=== PATIENT | female | born 1950 | race Caucasian/White ===

== ENCOUNTER 2017-09-29 10:11 | Inpatient (IN) | payer OTHER ==
--- NOTE | 2017-09-29 10:32 | PDOC ---
History of Present Illness <Matt Penaloza - Last Filed: 09/29/17 14:51> - General History Source: Patient Exam Limitations: No Limitations - History of Present Illness Initial Comments: 09/29/17 12:03 The patient is a 67 year old female, with a significant past medical history of Eczema who presents to the emergency department with L leg cellulitis. Patient has eczema of her LLE which she has been itching more frequently. Yesterday, patient has developed new erythema to the area. Patient states her eczema now involves her L foot and presents to the ED for further evaluation. Patient denies chest pain, headache or dizziness. Patient denies fever, chills, abdominal pain, nausea, vomit, diarrhea or constipation. Patient denies dysuria , frequency, urgency or hematuria. Patient denies sick contacts or recent travel. Allergies: NKA Past surgical history: None Social history: None PCP: Dr. Andres <Sanjuana Avitia - Last Filed: 09/29/17 14:55> - General Chief Complaint: Rash Stated Complaint: RASH Time Seen by Provider: 09/29/17 10:23 Past History - Past Medical History COPD: No Thyroid Disease: No - Immunization History Immunization Up to Date: Yes - Suicide/Smoking/Psychosocial Hx Smoking History: Never smoked Have you smoked in the past 12 months: No Hx Alcohol Use: Yes (OCCAS) Drug/Substance Use Hx: No Substance Use Type: Alcohol Hx Substance Use Treatment: No <TremaineMatt - Last Filed: 09/29/17 14:51> <Sanjuana Avitia - Last Filed: 09/29/17 14:55> - Past Medical History Allergies/Adverse Reactions: Allergies Allergy/AdvReac Type Severity Reaction Status Date / Time No Known Drug Allergies Allergy Verified 09/29/17 10:20 Home Medications: Ambulatory Orders NK [No Known Home Medication] 09/29/17 Review of Systems - Review of Systems Able to Perform ROS?: Yes Comments:: 09/29/17 12:03 GENERAL/CONSTITUTIONAL: No fever or chills. No weakness. HEAD, EYES, EARS, NOSE AND THROAT: No change in vision. No ear pain or discharge. No sore throat. CARDIOVASCULAR: No chest pain or shortness of breath. RESPIRATORY: No cough, wheezing, or hemoptysis. GASTROINTESTINAL: No nausea, vomiting, diarrhea or constipation. GENITOURINARY: No dysuria, frequency, or change in urination. MUSCULOSKELETAL: No joint or muscle swelling or pain. No neck or back pain. SKIN: +Eczema to LLE. No rash NEUROLOGIC: No headache, vertigo, loss of consciousness, or change in strength/ sensation. ENDOCRINE: No increased thirst. No abnormal weight change. HEMATOLOGIC/LYMPHATIC: No anemia, easy bleeding, or history of blood clots. ALLERGIC/IMMUNOLOGIC: No hives or skin allergy. <Sanjuana Avitia - Last Filed: 09/29/17 14:55> *Physical Exam - Vital Signs Last Vital Signs Temp Pulse Resp BP Pulse Ox 97.9 F 107 H 20 156/89 99 09/29/17 10:14 09/29/17 10:14 09/29/17 10:14 09/29/17 10:14 09/29/17 10:14 <Matt Penaloza - Last Filed: 09/29/17 14:51> - Vital Signs Last Vital Signs Temp Pulse Resp BP Pulse Ox 97.9 F 107 H 20 156/89 99 09/29/17 10:14 09/29/17 10:14 09/29/17 10:14 09/29/17 10:14 09/29/17 10:14 - Physical Exam Comments: 09/29/17 12:03 GENERAL: Awake, alert, and fully oriented, in no acute distress HEAD: No signs of trauma EYES: PERRLA, EOMI, sclera anicteric, conjunctiva clear ENT: Auricles normal inspection, hearing grossly normal, nares patent, oropharynx clear without exudates. Moist mucosa NECK: Normal ROM, supple, no lymphadenopathy, JVD, or masses LUNGS: Breath sounds equal, clear to auscultation bilaterally. No wheezes, and no crackles HEART: Regular rate and rhythm, normal S1 and S2, no murmurs, rubs or gallops ABDOMEN: Soft, nontender, normoactive bowel sounds. No guarding, no rebound. No masses EXTREMITIES: +Eczema to both LLE.+ Redness, tenderness and swelling from L foot to L knee. Normal range of motion. No clubbing or cyanosis. No cords. NEUROLOGICAL: Cranial nerves II through XII grossly intact. Normal speech, normal gait SKIN: Warm, Dry, normal turgor, no rashes or lesions noted. <Sanjuana Avitia - Last Filed: 09/29/17 14:55> ED Treatment Course - LABORATORY CBC & Chemistry Diagram: 09/29/17 11:03 09/29/17 13:43 <Matt Penaloza - Last Filed: 09/29/17 14:51> - LABORATORY CBC & Chemistry Diagram: 09/29/17 11:03 09/29/17 13:43 - ADDITIONAL ORDERS Additional order review: 09/29/17 11:03 RBC 4.07 MCV 94.4 MCHC 33.2 RDW 13.0 MPV 9.0 Neutrophils % 82.2 Lymphocytes % 9.7 Monocytes % 7.3 Eosinophils % 0.4 Basophils % 0.4 - Medications Given in the ED: ED Medications Discontinued Medications Generic Name Dose Route Start Last Admin Trade Name Freq PRN Reason Stop Dose Admin Clindamycin Phosphate 900 mg in 50 mls @ 100 mls/hr 09/29/17 10:51 09/29/17 11:15 Cleocin 900 Mg Premix Ivpb - IVPB 09/29/17 11:20 100 mls/hr ONCE ONE Administration <Sanjuana Avitia - Last Filed: 09/29/17 14:55> *DC/Admit/Observation/Transfer - Discharge Dispostion Admit: Yes - Attestations Physician Attestion: 09/29/17 10:32 I, Dr. Matt Penaloza, attest that this document has been prepared under my direction and personally reviewed by me in its entirety. I further attest, that it accurately reflects all work, treatment, procedures and medical decision -making performed by me. <Matt Penaloza - Last Filed: 09/29/17 14:51> - Attestations Scribe Attestion: 09/29/17 12:03 Documentation prepared by Sanjuana Avitia, acting as medical dermatologist for Matt Penaloza MD <Sanjuana Avitia - Last Filed: 09/29/17 14:55> Diagnosis at time of Disposition: Cellulitis Qualifiers: Site of cellulitis: extremity Site of cellulitis of extremity: lower extremity Laterality: left Qualified Code(s): L03.116 - Cellulitis of left lower limb - Referrals Referrals: Mike Andres MD [Primary Care Provider] - - Patient Instructions - Post Discharge Activity
[2017-09-29] MEDS ORDERED: CLINDAMYCIN 900 MG PREMIX IVPB 900 MG/50 ML BAG IVPB ONE ×2 (10:51→11:12)
[2017-09-29 11:36] LABS: BASOPHIL 0.4 % (0-2.0); EOSINOPHIL 0.4 % (0-4.5); MCH 31.4 pg (25.7-33.7); MCHC 33.2 g/dl (32.0-36.0); MEAN CELL VOLUME 94.4 fl (80-96); NEUTROPHILS 82.2 % (42.8-82.8); PLATELET COUNT 297 K/MM3 (134-434); WHITE BLOOD COUNT 17.9 K/mm3 (4.0-10.0)
[2017-09-29 11:42] LABS: INR 1.12 (0.82-1.09); PROTHROMBIN TIME (PATIENT) 12.7 SEC (9.98-11.88)
[2017-09-29] MEDS ORDERED: ONDANSETRON 4 MG/2 ML VIAL IVPUSH ONE (13:37)
[2017-09-29] MEDS ORDERED: ONDANSETRON 4 MG/2 ML VIAL ONE (13:38)
[2017-09-29 14:06] LABS: ALBUMIN 3.5 g/dl (3.4-5.0); ANION GAP 9 (8-16); CALCIUM 9.7 mg/dL (8.5-10.1); CO2 30 mmol/L (21-32); CREATININE 0.8 mg/dL (0.55-1.02); GLUCOSE,RANDOM 113 mg/dL (74-106); SGOT/AST 41 U/L (15-37); SGPT/ALT 111 U/L (12-78); TOT PROT 8.4 g/dl (6.4-8.2)
[2017-09-29 14:12] LABS: ALK PHOS 218 U/L (45-117); BILIRUBIN,TOTAL 0.8 mg/dL (0.2-1.0); C-REACTIVE PROTEIN 33.2 MG/DL (0.00-0.3)
[2017-09-29 15:16] VITALS: BMI 41.5
[2017-09-29 15:30] LABS: ERYTHROCYTE SEDIMENTATION RATE 111 mm/hr (0-30)
[2017-09-29] MEDS ORDERED: ACETAMINOPHEN 325 MG TABLET (FP) PO PRN (16:48)
[2017-09-29] MEDS ORDERED: ONDANSETRON 4 MG/2 ML VIAL IVPUSH PRN (16:56)
--- NOTE | 2017-09-29 17:43 | HP ---
CHIEF COMPLAINT: Left lower extremity , pain/ swelling PCP: DR. Lagunas HISTORY OF PRESENT ILLNESS: The patient is a 67 year old female, with a significant past medical history of Eczema who presents to the emergency department with Left leg pain, redness, swelling and itching since yesterday.Pt also reports subjective fever,GONZALEZ,nausea , generalized weakness and flu likely symptoms over a week. Denies cp, sob, palpitations, dizziness, abdominal pain,vomiting, diarrhea,constipation or urinary symptoms. ER course was notable for: (1) wbc 17.9 (2)HR 107 (3)NA-133 Recent Travel: No PAST MEDICAL HISTORY: Eczema and kidney stone PAST SURGICAL HISTORY: Lithotripsy 2 yrs ago Social History: Smoking:No Alcohol:No Drugs: No Family History: Father - colon CA, CVA Mother RA I brother - DM Sister of liver cirrhosis at age 45yrs old Allergies No Known Drug Allergies Allergy (Verified 09/29/17 10:20) HOME MEDICATIONS: Home Medications Medication Instructions Recorded NK [No Known Home Medication] 09/29/17 REVIEW OF SYSTEMS CONSTITUTIONAL: Reports fever, chills and recent respiratory symptoms ( cold symptoms) diaphoresis, generalized weakness, malaise, loss of appetite, weight change HEENT: Absent: rhinorrhea, nasal congestion, throat pain, throat swelling, difficulty swallowing, mouth swelling, ear pain, eye pain, visual changes CARDIOVASCULAR: Absent: chest pain, syncope, palpitations, irregular heart rate, lightheadedness , peripheral edema RESPIRATORY: Absent: cough, shortness of breath, dyspnea with exertion, orthopnea, wheezing, stridor, hemoptysis GASTROINTESTINAL: Absent: abdominal pain, abdominal distension, nausea, vomiting, diarrhea, constipation, melena, hematochezia GENITOURINARY: Absent: dysuria, frequency, urgency, hesitancy, hematuria, flank pain, genital pain MUSCULOSKELETAL: LLE throbbing pain,pain,swelling and redness Absent: myalgia, arthralgia, joint swelling, back pain, neck pain SKIN: Absent: rash, itching, pallor HEMATOLOGIC/IMMUNOLOGIC: Absent: easy bleeding, easy bruising, lymphadenopathy, frequent infections ENDOCRINE: Absent: unexplained weight gain, unexplained weight loss, heat intolerance, cold intolerance NEUROLOGIC: Absent: headache, focal weakness or paresthesias, dizziness, unsteady gait, seizure, mental status changes, bladder or bowel incontinence PSYCHIATRIC: Absent: anxiety, depression, suicidal or homicidal ideation, hallucinations. PHYSICAL EXAMINATION Vital Signs - 24 hr 09/29/17 09/29/17 09/29/17 10:14 14:00 16:02 Temperature 97.9 F 98 F Pulse Rate 107 H 91 H Pulse Rate [ 90 Right Radial] Respiratory 20 18 18 Rate Blood Pressure 156/89 130/65 Blood Pressure 130/82 [Left Arm] O2 Sat by Pulse 99 99 Oximetry (%) GENERAL: Awake, alert, and fully oriented, in no acute distress. HEAD: Normal with no signs of trauma. EYES: Pupils equal, round and reactive to light, extraocular movements intact, sclera anicteric, conjunctiva clear. No lid lag. EARS, NOSE, THROAT: Ears normal, nares patent, oropharynx clear without exudates. Moist mucous membranes. NECK: Normal range of motion, supple without lymphadenopathy, JVD, or masses. LUNGS: Breath sounds equal, clear to auscultation bilaterally. No wheezes, and no crackles. No accessory muscle use. HEART: Regular rate and rhythm, normal S1 and S2 without murmur, rub or gallop. ABDOMEN: Soft, nontender, not distended, normoactive bowel sounds, no guarding, no rebound, no masses. No hepatomegaly or splenomegaly. MUSCULOSKELETAL: Normal range of motion at all joints. No bony deformities or tenderness. No CVA tenderness. UPPER EXTREMITIES: 2+ pulses, warm, well-perfused. No cyanosis. No clubbing. No peripheral edema. LOWER EXTREMITIES: 2+ pulses, warm, well-perfused. LLE with redness, swelling, + tenderness and multiple skin lesions (scratching) No calf tenderness. No peripheral edema. NEUROLOGICAL: Cranial nerves II-XII intact. Normal speech. Normal gait. PSYCHIATRIC: Cooperative. Good eye contact. Appropriate mood and affect. SKIN: Warm, dry, normal turgor, LLE lesions noted, normal capillary refill. Laboratory Results - last 24 hr 09/29/17 09/29/17 09/29/17 11:03 11:03 11:03 WBC 17.9 H RBC 4.07 Hgb 12.8 Hct 38.4 MCV 94.4 MCH 31.4 MCHC 33.2 RDW 13.0 Plt Count 297 MPV 9.0 Neutrophils % 82.2 Lymphocytes % 9.7 Monocytes % 7.3 Eosinophils % 0.4 Basophils % 0.4 ESR 111 H PT with INR 12.70 H INR 1.12 Sodium Cancelled Potassium Cancelled Chloride Cancelled Carbon Dioxide Cancelled Anion Gap Cancelled BUN Cancelled Creatinine Cancelled Creat Clearance w eGFR Cancelled Random Glucose Cancelled Calcium Cancelled Total Bilirubin Cancelled AST Cancelled ALT Cancelled Alkaline Phosphatase Cancelled C-Reactive Protein Cancelled Total Protein Cancelled Albumin Cancelled 09/29/17 13:43 WBC RBC Hgb Hct MCV MCH MCHC RDW Plt Count MPV Neutrophils % Lymphocytes % Monocytes % Eosinophils % Basophils % ESR PT with INR INR Sodium 133 L Potassium 4.3 Chloride 94 L Carbon Dioxide 30 Anion Gap 9 BUN 11 Creatinine 0.8 Creat Clearance w eGFR > 60 Random Glucose 113 H Calcium 9.7 Total Bilirubin 0.8 AST 41 H ALT 111 H Alkaline Phosphatase 218 H C-Reactive Protein 33.2 H Total Protein 8.4 H Albumin 3.5 Blood culture done: Report pending US lower EXT- DVT ruled out ASSESSMENT/PLAN: The patient is a 67 year old female, with a significant past medical history of Eczema, Admitted with LLE cellulitis. * sepsis secondary to LLE cellulitis - DVT ruled out - wbc 17.9, ST - afebrile - s/p Cleocin in ER - will start on Zosyn - ID consulted - Bllod culture done, report pending - lactic acid level pending - abnormal ESR and CRP - pain management - will get CxR and UA *Transaminitis - likely in the setting of infection - denies hx of alcohol use - asymptomatic - will repeat LFT's in am - if it remains elevated, further w/u needed * Dehydration - NA 133 - Started on IVF - will f/u on labs in am * F/E/N- Regular diet -IV hydration * VTE : Heparin sq Visit type - Emergency Visit Emergency Visit: Yes ED Registration Date: 09/29/17 Care time: The patient presented to the Emergency Department on the above date and was hospitalized for further evaluation of their emergent condition. - New Patient This patient is new to me today: Yes Date on this admission: 09/29/17 - Critical Care Critical Care patient: No
[2017-09-29] MEDS: traMADol HCL 50 MG TABLET PO PRN (17:50)
[2017-09-29] MEDS: SODIUM CHLORIDE 1,000 ML IV SCH (17:50)
[2017-09-29] MEDS: PIPERACILLIN/TAZOB 3.375 GM 50 ML IVPB SCH (19:04)
[2017-09-29] MEDS: HEPARIN NA (PORCINE) 5,000 UNITS/ML 1ML VIAL SQ SCH (21:41)
[2017-09-29 23:25] LABS: URINE APPEARANCE SLCLOUDY; URINE BILIRUBIN NEGATIVE (NEGATIVE); URINE BLOOD NEGATIVE (NEGATIVE); URINE COLOR YELLOW; URINE GLUCOSE (UA) NEGATIVE (NEGATIVE); URINE KETONE TRACE (NEGATIVE); URINE NITRITE NEGATIVE (NEGATIVE); URINE PROTEIN NEGATIVE (NEGATIVE)
[2017-09-29 23:26] LABS: URINE LEUK ESTERASE 3+ (NEGATIVE)
[2017-09-29 23:27] LABS: URINE MUCUS RARE; URINE RBC 7 /hpf (0-3); URINE WBC 89 /hpf (3-5)
[2017-09-30] MEDS: PIPERACILLIN/TAZOB 3.375 GM 50 ML IVPB SCH ×2 (01:23→09:42)
[2017-09-30] MEDS: SODIUM CHLORIDE 1,000 ML IV SCH ×2 (04:41→15:06)
[2017-09-30] MEDS: traMADol HCL 50 MG TABLET PO PRN ×3 (05:31→19:15)
[2017-09-30] MEDS: HEPARIN NA (PORCINE) 5,000 UNITS/ML 1ML VIAL SQ SCH ×3 (05:32→22:44)
[2017-09-30 07:51] LABS: ALBUMIN 2.9 g/dl (3.4-5.0); ANION GAP 10 (8-16); CALCIUM 9.1 mg/dL (8.5-10.1); CO2 28 mmol/L (21-32); GLUCOSE,RANDOM 81 mg/dL (74-106)
[2017-09-30 07:55] LABS: ALK PHOS 190 U/L (45-117); BILIRUBIN,TOTAL 0.8 mg/dL (0.2-1.0); CREATININE 0.7 mg/dL (0.55-1.02); SGOT/AST 30 U/L (15-37); SGPT/ALT 81 U/L (12-78); TOT PROT 7.4 g/dl (6.4-8.2)
[2017-09-30 08:52] LABS: BASOPHIL 0.6 % (0-2.0); EOSINOPHIL 0.8 % (0-4.5); MCH 32.3 pg (25.7-33.7); MCHC 33.2 g/dl (32.0-36.0); MEAN PLT VOLUME 8.8 fl (7.5-11.1); NEUTROPHILS 74.4 % (42.8-82.8); PLATELET COUNT 287 K/MM3 (134-434); RDW 13.4 % (11.6-15.6); WHITE BLOOD COUNT 13.9 K/mm3 (4.0-10.0)
--- NOTE | 2017-09-30 13:11 | HP ---
CHIEF COMPLAINT: PCP: HISTORY OF PRESENT ILLNESS: ER course was notable for: (1) (2) (3) Recent Travel: PAST MEDICAL HISTORY: PAST SURGICAL HISTORY: Social History: Smoking: Alcohol: Drugs: Family History: Allergies No Known Drug Allergies Allergy (Verified 09/29/17 10:20) HOME MEDICATIONS: Home Medications Medication Instructions Recorded NK [No Known Home Medication] 09/29/17 REVIEW OF SYSTEMS CONSTITUTIONAL: Absent: fever, chills, diaphoresis, generalized weakness, malaise, loss of appetite, weight change HEENT: Absent: rhinorrhea, nasal congestion, throat pain, throat swelling, difficulty swallowing, mouth swelling, ear pain, eye pain, visual changes CARDIOVASCULAR: Absent: chest pain, syncope, palpitations, irregular heart rate, lightheadedness , peripheral edema RESPIRATORY: Absent: cough, shortness of breath, dyspnea with exertion, orthopnea, wheezing, stridor, hemoptysis GASTROINTESTINAL: Absent: abdominal pain, abdominal distension, nausea, vomiting, diarrhea, constipation, melena, hematochezia GENITOURINARY: Absent: dysuria, frequency, urgency, hesitancy, hematuria, flank pain, genital pain MUSCULOSKELETAL: Absent: myalgia, arthralgia, joint swelling, back pain, neck pain SKIN: Absent: rash, itching, pallor HEMATOLOGIC/IMMUNOLOGIC: Absent: easy bleeding, easy bruising, lymphadenopathy, frequent infections ENDOCRINE: Absent: unexplained weight gain, unexplained weight loss, heat intolerance, cold intolerance NEUROLOGIC: Absent: headache, focal weakness or paresthesias, dizziness, unsteady gait, seizure, mental status changes, bladder or bowel incontinence PSYCHIATRIC: Absent: anxiety, depression, suicidal or homicidal ideation, hallucinations. PHYSICAL EXAMINATION Vital Signs - 24 hr 09/29/17 09/29/17 09/29/17 14:00 16:02 21:00 Temperature 98 F Pulse Rate 91 H Pulse Rate [ 90 Right Radial] Respiratory 18 18 20 Rate Blood Pressure 130/65 Blood Pressure 130/82 [Left Arm] O2 Sat by Pulse 99 99 Oximetry (%) 09/29/17 09/30/17 09/30/17 22:00 05:42 06:09 Temperature 98.9 F 98.3 F Pulse Rate 90 79 Pulse Rate [ Right Radial] Respiratory 20 20 19 Rate Blood Pressure 130/70 143/67 Blood Pressure [Left Arm] O2 Sat by Pulse 99 Oximetry (%) 12/11/17 10:00 Temperature 99 F Pulse Rate 82 Pulse Rate [ Right Radial] Respiratory 18 Rate Blood Pressure 117/69 Blood Pressure [Left Arm] O2 Sat by Pulse Oximetry (%) GENERAL: Awake, alert, and fully oriented, in no acute distress. HEAD: Normal with no signs of trauma. EYES: Pupils equal, round and reactive to light, extraocular movements intact, sclera anicteric, conjunctiva clear. No lid lag. EARS, NOSE, THROAT: Ears normal, nares patent, oropharynx clear without exudates. Moist mucous membranes. NECK: Normal range of motion, supple without lymphadenopathy, JVD, or masses. LUNGS: Breath sounds equal, clear to auscultation bilaterally. No wheezes, and no crackles. No accessory muscle use. HEART: Regular rate and rhythm, normal S1 and S2 without murmur, rub or gallop. ABDOMEN: Soft, nontender, not distended, normoactive bowel sounds, no guarding, no rebound, no masses. No hepatomegaly or splenomegaly. MUSCULOSKELETAL: Normal range of motion at all joints. No bony deformities or tenderness. No CVA tenderness. UPPER EXTREMITIES: 2+ pulses, warm, well-perfused. No cyanosis. No clubbing. No peripheral edema. LOWER EXTREMITIES: 2+ pulses, warm, well-perfused. No calf tenderness. No peripheral edema. NEUROLOGICAL: Cranial nerves II-XII intact. Normal speech. Normal gait. PSYCHIATRIC: Cooperative. Good eye contact. Appropriate mood and affect. SKIN: Warm, dry, normal turgor, no rashes or lesions noted, normal capillary refill. Laboratory Results - last 24 hr 09/29/17 09/29/17 09/29/17 11:03 13:43 16:50 WBC RBC Hgb Hct MCV MCH MCHC RDW Plt Count MPV Neutrophils % Lymphocytes % Monocytes % Eosinophils % Basophils % ESR 111 H Sodium 133 L Potassium 4.3 Chloride 94 L Carbon Dioxide 30 Anion Gap 9 BUN 11 Creatinine 0.8 Creat Clearance w eGFR > 60 Random Glucose 113 H Lactic Acid 1.1 Calcium 9.7 Total Bilirubin 0.8 AST 41 H ALT 111 H Alkaline Phosphatase 218 H C-Reactive Protein 33.2 H Total Protein 8.4 H Albumin 3.5 Urine Color Urine Appearance Urine pH Ur Specific [place] Urine Protein Urine Glucose (UA) Urine Ketones Urine Blood Urine Nitrite Urine Bilirubin Urine Urobilinogen Urine WBC (Auto) Urine RBC (Auto) Ur Epithelial Cells Urine Mucus 09/29/17 09/29/17 09/30/17 21:30 23:00 05:15 WBC RBC Hgb Hct MCV MCH MCHC RDW Plt Count MPV Neutrophils % Lymphocytes % Monocytes % Eosinophils % Basophils % ESR Sodium 134 L Potassium 3.8 Chloride 96 L Carbon Dioxide 28 Anion Gap 10 BUN 13 Creatinine 0.7 Creat Clearance w eGFR > 60 Random Glucose 81 D Lactic Acid 0.7 Calcium 9.1 Total Bilirubin 0.8 AST 30 D ALT 81 H D Alkaline Phosphatase 190 H C-Reactive Protein Total Protein 7.4 Albumin 2.9 L Urine Color Yellow Urine Appearance Slcloudy Urine pH 5.0 Ur Specific [place] 1.016 Urine Protein Negative Urine Glucose (UA) Negative Urine Ketones Trace H Urine Blood Negative Urine Nitrite Negative Urine Bilirubin Negative Urine Urobilinogen 2.0 H Urine WBC (Auto) 89 Urine RBC (Auto) 7 Ur Epithelial Cells Few Urine Mucus Rare 09/30/17 05:15 WBC 13.9 H RBC 3.68 Hgb 11.9 Hct 35.7 MCV 97.0 H MCH 32.3 MCHC 33.2 RDW 13.4 Plt Count 287 MPV 8.8 Neutrophils % 74.4 Lymphocytes % 14.6 D Monocytes % 9.6 Eosinophils % 0.8 D Basophils % 0.6 ESR Sodium Potassium Chloride Carbon Dioxide Anion Gap BUN Creatinine Creat Clearance w eGFR Random Glucose Lactic Acid Calcium Total Bilirubin AST ALT Alkaline Phosphatase C-Reactive Protein Total Protein Albumin Urine Color Urine Appearance Urine pH Ur Specific [place] Urine Protein Urine Glucose (UA) Urine Ketones Urine Blood Urine Nitrite Urine Bilirubin Urine Urobilinogen Urine WBC (Auto) Urine RBC (Auto) Ur Epithelial Cells Urine Mucus ASSESSMENT/PLAN:
--- NOTE | 2017-09-30 13:11 | PN ---
Physical Exam: SUBJECTIVE: Patient seen and examined at the bedside. Mild LLE pain relieved with pain medications. OBJECTIVE: Vital Signs Period Temp Pulse Resp BP Sys/Hazel Pulse Ox Last 24 Hr 98 F-99 F 79-91 18-20 117-143/65-82 99-99 GENERAL: The patient is awake, alert, and fully oriented, in no acute distress. HEAD: Normal with no signs of trauma. EYES: PERRL, extraocular movements intact, sclera anicteric, conjunctiva clear. No ptosis. ENT: Ears normal, nares patent, oropharynx clear without exudates, moist mucous membranes. NECK: Trachea midline, full range of motion, supple. LUNGS: Mild expiratory wheezing on bilateral upper lobes, denies shortness of breath HEART: Regular rate and rhythm, S1, S2 without murmur, rub or gallop. ABDOMEN: Soft, nontender, nondistended, normoactive bowel sounds, no guarding, no rebound, no hepatosplenomegaly, no masses. EXTREMITIES: LLE + cellulitis, SKIN: LLE cellulitis, ext warm to touch, +pain with ambulation Laboratory Results - last 24 hr 09/29/17 09/29/17 09/29/17 11:03 13:43 16:50 WBC RBC Hgb Hct MCV MCH MCHC RDW Plt Count MPV Neutrophils % Lymphocytes % Monocytes % Eosinophils % Basophils % ESR 111 H Sodium 133 L Potassium 4.3 Chloride 94 L Carbon Dioxide 30 Anion Gap 9 BUN 11 Creatinine 0.8 Creat Clearance w eGFR > 60 Random Glucose 113 H Lactic Acid 1.1 Calcium 9.7 Total Bilirubin 0.8 AST 41 H ALT 111 H Alkaline Phosphatase 218 H C-Reactive Protein 33.2 H Total Protein 8.4 H Albumin 3.5 Urine Color Urine Appearance Urine pH Ur Specific [place] Urine Protein Urine Glucose (UA) Urine Ketones Urine Blood Urine Nitrite Urine Bilirubin Urine Urobilinogen Urine WBC (Auto) Urine RBC (Auto) Ur Epithelial Cells Urine Mucus 09/29/17 09/29/17 09/30/17 21:30 23:00 05:15 WBC RBC Hgb Hct MCV MCH MCHC RDW Plt Count MPV Neutrophils % Lymphocytes % Monocytes % Eosinophils % Basophils % ESR Sodium 134 L Potassium 3.8 Chloride 96 L Carbon Dioxide 28 Anion Gap 10 BUN 13 Creatinine 0.7 Creat Clearance w eGFR > 60 Random Glucose 81 D Lactic Acid 0.7 Calcium 9.1 Total Bilirubin 0.8 AST 30 D ALT 81 H D Alkaline Phosphatase 190 H C-Reactive Protein Total Protein 7.4 Albumin 2.9 L Urine Color Yellow Urine Appearance Slcloudy Urine pH 5.0 Ur Specific [place] 1.016 Urine Protein Negative Urine Glucose (UA) Negative Urine Ketones Trace H Urine Blood Negative Urine Nitrite Negative Urine Bilirubin Negative Urine Urobilinogen 2.0 H Urine WBC (Auto) 89 Urine RBC (Auto) 7 Ur Epithelial Cells Few Urine Mucus Rare 09/30/17 05:15 WBC 13.9 H RBC 3.68 Hgb 11.9 Hct 35.7 MCV 97.0 H MCH 32.3 MCHC 33.2 RDW 13.4 Plt Count 287 MPV 8.8 Neutrophils % 74.4 Lymphocytes % 14.6 D Monocytes % 9.6 Eosinophils % 0.8 D Basophils % 0.6 ESR Sodium Potassium Chloride Carbon Dioxide Anion Gap BUN Creatinine Creat Clearance w eGFR Random Glucose Lactic Acid Calcium Total Bilirubin AST ALT Alkaline Phosphatase C-Reactive Protein Total Protein Albumin Urine Color Urine Appearance Urine pH Ur Specific [place] Urine Protein Urine Glucose (UA) Urine Ketones Urine Blood Urine Nitrite Urine Bilirubin Urine Urobilinogen Urine WBC (Auto) Urine RBC (Auto) Ur Epithelial Cells Urine Mucus Active Medications Generic Name Dose Route Start Last Admin Trade Name Freq PRN Reason Stop Dose Admin Acetaminophen 650 mg 09/29/17 16:48 09/29/17 23:27 Tylenol - PO 650 mg Q4H PRN Administration FEVER OR PAIN Heparin Sodium (Porcine) 5,000 unit 09/29/17 22:00 09/30/17 05:32 Heparin - SQ 5,000 unit TID SWATHI Administration Piperacillin/Tazobactam/Dextrose 50 mls @ 100 mls/hr 09/29/17 18:00 09/30/17 09:42 Zosyn 3.375gm Ivpb (Premix) IVPB 100 mls/hr Q8H-IV SWATHI Administration Protocol Sodium Chloride 1,000 mls @ 100 mls/hr 09/29/17 17:00 09/30/17 04:41 Normal Saline - IV 100 mls/hr ASDIR SWATHI Administration Ondansetron HCl 4 mg 09/29/17 16:56 Zofran Injection IVPUSH Q4H PRN NAUSEA AND/OR VOMITING Tramadol HCl 50 mg 09/29/17 16:55 09/30/17 11:21 Ultram - PO 50 mg Q6H PRN Administration PAIN ASSESSMENT/PLAN: Patient is a 67 year old female, with a significant past medical history of eczema and former smoker. She presented to the ED on 09/29/2017 with lower extremity cellulitis. Patient has eczema of her LLE which she has been scratching with her fingernails more frequently. Patient states her eczema now involves her L foot and presents to the ED for further evaluation. On exam, patient denies chest pain, headache or dizziness. Patient denies fever , chills, abdominal pain, nausea, vomit, diarrhea or constipation. ID: Sepsis secondary to Left Lower ext Cellulitis, improving Negative for DVT WBC 17.9 > 13.9 Given Clindamycin in ER, now on Zosyn Wound not draining, unable to send for culture Multiple area of healed scabs on wound Lactic levels within normal limits Remains afebrile Monitor wound, pain and labs GI: Transaminitis, unclear etiology Denies alcohol use LFTs trending down Dehydration Sodium levels improving 133>134 On IVF, gentle hydration F.E.N. Fluids: NS @ 50cc/hr Electrolytes: monitor Nutrition: regular Prophylaxis: DVT: Heparin sq TID GI: deferred Disposition: Requires inpatient hospitalization. full code Visit type - Emergency Visit Emergency Visit: Yes ED Registration Date: 09/29/17 Care time: The patient presented to the Emergency Department on the above date and was hospitalized for further evaluation of their emergent condition. - New Patient This patient is new to me today: Yes Date on this admission: 09/30/17 - Critical Care Critical Care patient: No - Discharge Referral Referred to [facility] No
[2017-09-30] MEDS ORDERED: ALBUTEROL SO4 2.5/IPRATROPIUM 0.5 INH SOL 3 ML VIAL.NEB. NEB PRN (13:13)
--- NOTE | 2017-09-30 14:03 | CON.ID ---
Consult - History of Present Illness History of Present Illness: This is a 67 y.o. female with PMH of eczema and nephrolithiasis s/p lithotripsy presenting with complaints of LLE edema/erythema/tenderness that began the day [employer] and worsened the next day. The pain was 8-9/10 in intensity. Pt states she had been scratching her leg aggressively due to pruritis. She had subjective fever and chills as well. The previous week she reports that she had a flu-like illness with rhinorrhea and muscle pains. States her symptoms resolved in the last few days. In the ER she was noted to have leukocytosis (wbc 17.9) and tacycardia. She was started on IV antibiotics empirically and she states she is feeling better today. The pain is about 5/10 in intensity. 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: No: Alzheimer's, CVA, Dementia, Migraine, Multiple Sclerosis, Peripheral Neuropathy, Parkinson's, Seizure, Syncope, TIA, Vertigo, Other Cardio/Vascular: No: AFIB, Aneurysm, Aortic Insufficiency, Aortic Stenosis, CAD , CHF, Deep Vein Thrombosis, HTN, Hyperlipdemia, NV, Mitral Insufficiency, Mitral Stenosis, Murmur, Pulmonary Hypertension, Other Pulmonary: No: Asthma, Bronchitis, Cancer, COPD, O2 Dependent, Pneumonia, Previously Intubated, Pulmonary Embolus, Pulmonary Fibrosis, Sleep Apnea, Other Gastrointestinal: No: Ascites, Cancer, Constipation, Crohn's Disease, Diverticulitis, Diverticulosis, Esophageal Varices, Gastritis, GERD, GI Bleed, Hemorrhoids, Hiatal Hernia, Inflamatory Bowel Disease, Irritable Bowel Disease, Pancreatitis, Peptic Ulcer Disease, Ulcerative Colitis, Other Hepatobiliary: No: Cirrhosis, Cholelithiasis, Cholecystitis, Choledocholithiasis , Hepatitis A, Hepatitis B, Hepatitis C, Other Renal/: Yes: Other (renal calculi s/p lithotripsy) Reproductive: No: Ectopic , Endometriosis, Fibroids, PID, Polycystic Ovary Syndrome, Postmenopausal, Other Heme/Onc: No: Anemia, B12 Deficiency, Bleeding Disorder, Cancer, Current Chemotherapy, Current Radiation Therapy, Hemochromatosis, Hypercoaguable State, Myeloproliferative Synd, Sickle Cell Disease, Sickle Cell Trait, Thrombocytopenia, Other Infectious Disease: No: AIDS, C-Diff, Herpes Zoster, HIV, MRSA, STD's, Tuberculosis, VREF, Other Psych: No: Addictions, Anxiety, Bipolar, Depression, Panic, Psychosis, Schizophrenia, Other Musculoskeletal: No: Bursitis, Chronic low back pain, Hemiparesis, Hemiplegia, Osteoarthritis, Paraplegia, Other Rheumatology: No: Fibromyalgia, Gout, Lupus, Rheumatoid Arthritis, Sarcoidosis, Vasculitis, Other ENT: No: Allergic Rhinitis, Sinusitis, Other Endocrine: No: Negro's Disease, Laron's Disease, Diabetes Insipidus, Diabetes Mellitus, Hyperparathyroidism, Hyperthyroidism, Hypothyroidism, Osteopenia, SIADH, Other - Alcohol/Substance Use Hx Alcohol Use: Yes (OCCAS) - Smoking History Smoking history: Never smoked Have you smoked in the past 12 months: No Home Medications - Allergies Allergies/Adverse Reactions: Allergies Allergy/AdvReac Type Severity Reaction Status Date / Time No Known Drug Allergies Allergy Verified 09/29/17 10:20 - Home Medications Home Medications: Ambulatory Orders NK [No Known Home Medication] 09/29/17 Family Disease History - Family Disease History Family Disease History: Diabetes: Mother, CA: Father (colon CA), Other: Sister ( liver cirrhosis) Review of Systems - Review of Systems Constitutional: reports: No Symptoms Eyes: reports: No Symptoms HENT: reports: No Symptoms Neck: reports: No Symptoms Cardiovascular: reports: No Symptoms Respiratory: reports: No Symptoms Gastrointestinal: reports: No Symptoms Genitourinary: reports: No Symptoms Breasts: reports: No Symptoms Reported Musculoskeletal: reports: No Symptoms Integumentary: reports: Erythema, Other (LLE erythema/edema/tenderness) Neurological: reports: No Symptoms Endocrine: reports: No Symptoms Hematology/Lymphatic: reports: No Symptoms Psychiatric: reports: No Symptoms Pain Intensity: 5 Physical Exam Vital Signs: Vital Signs Temperature 99 F 09/30/17 10:00 Pulse Rate 82 09/30/17 10:00 Respiratory Rate 18 09/30/17 10:00 Blood Pressure 117/69 09/30/17 10:00 O2 Sat by Pulse Oximetry (%) 99 09/30/17 05:42 Constitutional: Yes: No Distress, Calm Eyes: Yes: WNL HENT: Yes: Atraumatic Neck: Yes: Supple Cardiovascular: Yes: Regular Rate and Rhythm Respiratory: Yes: CTA Bilaterally Gastrointestinal: Yes: Normal Bowel Sounds, Soft Renal/: Yes: WNL Musculoskeletal: Yes: WNL Extremities: Yes: Erythema (LLE) Integumentary: Yes: Erythema, Other (LLE warmth/tenderness/mild edema, dried excoriations, no purulence or open draining wounds) Neurological: Yes: Alert, Oriented Labs: CBC, BMP 09/30/17 05:15 09/30/17 05:15 Problem List - Problems (1) Cellulitis Code(s): L03.90 - CELLULITIS, UNSPECIFIED Qualifiers: Site of cellulitis: extremity Site of cellulitis of extremity: lower extremity Laterality: left Qualified Code(s): L03.116 - Cellulitis of left lower limb Assessment/Plan 67 y.o. female presenting with LLE edema/warmth/erythema/tenderness and leukocytosis LLE Cellulitis - will switch to Unasyn for now - continue monitor for improvement - wbc ct trending down - appears to be feeling better
[2017-09-30] MEDS: AMPICILLIN NA/SULBACTAM NA 3 GM in SODIUM CHLORIDE 100 ML IVPB SCH ×2 (15:58→22:00)
[2017-09-30 18:53] LABS: URINE LEUK ESTERASE 3+ (NEGATIVE)
[2017-10-01] MEDS: AMPICILLIN NA/SULBACTAM NA 3 GM in SODIUM CHLORIDE 100 ML IVPB SCH ×4 (02:34→22:55)
[2017-10-01] MEDS: traMADol HCL 50 MG TABLET PO PRN ×2 (06:15→17:48)
[2017-10-01] MEDS: HEPARIN NA (PORCINE) 5,000 UNITS/ML 1ML VIAL SQ SCH ×3 (06:16→22:55)
--- NOTE | 2017-10-01 09:37 | PN ---
Physical Exam: SUBJECTIVE: Patient seen and examined at the bedside. States she feels better, she feels like her left lower wound is healing. Ambulating in the room without difficulty, minimal pain on left lower ext. OBJECTIVE: one pos. blood culture bottle, may be contaminant? repeated blood cultures pending Vital Signs Period Temp Pulse Resp BP Sys/Hazel Pulse Ox Last 24 Hr 98.3 F-99 F 77-88 18-20 117-146/63-76 94-96 GENERAL: The patient is awake, alert, and fully oriented, in no acute distress. HEAD: Normal with no signs of trauma. EYES: PERRL, extraocular movements intact, sclera anicteric, conjunctiva clear. No ptosis. ENT: Ears normal, nares patent, oropharynx clear without exudates, moist mucous membranes. NECK: Trachea midline, full range of motion, supple. LUNGS: denies shortness of breath, diminished/clear lungs HEART: Regular rate and rhythm, S1, S2 without murmur, rub or gallop. ABDOMEN: Soft, nontender, nondistended, normoactive bowel sounds, no guarding, no rebound, no hepatosplenomegaly, no masses. EXTREMITIES: LLE + cellulitis, SKIN: LLE cellulitis, ext warm to touch, minimal +pain with ambulation Laboratory Results - last 24 hr 09/29/17 23:00 Ur Leukocyte Esterase 3+ H Active Medications Generic Name Dose Route Start Last Admin Trade Name Freq PRN Reason Stop Dose Admin Acetaminophen 650 mg 09/29/17 16:48 09/29/17 23:27 Tylenol - PO 650 mg Q4H PRN Administration FEVER OR PAIN Albuterol/Ipratropium 1 amp 09/30/17 13:13 Duoneb - NEB Q6H PRN SHORTNESS OF BREATH Heparin Sodium (Porcine) 5,000 unit 09/29/17 22:00 10/01/17 06:16 Heparin - SQ 5,000 unit TID SWATHI Administration Sodium Chloride 1,000 mls @ 50 mls/hr 09/30/17 13:14 09/30/17 15:06 Normal Saline - IV 50 mls/hr ASDIR SWATHI Administration Ampicillin Sodium/Sulbactam 100 mls @ 200 mls/hr 09/30/17 15:00 10/01/17 02: 34 Sodium 3 gm/ Sodium Chloride IVPB 200 mls/hr Q6H-IV SWATHI Administration Ondansetron HCl 4 mg 09/29/17 16:56 Zofran Injection IVPUSH Q4H PRN NAUSEA AND/OR VOMITING Tramadol HCl 50 mg 09/29/17 16:55 10/01/17 06:15 Ultram - PO 50 mg Q6H PRN Administration PAIN ASSESSMENT/PLAN: Patient is a 67 year old female, with a significant past medical history of eczema and former smoker (quit over 10 years ago). She presented to the ED on 09/29/2017 with left lower extremity cellulitis. Patient has eczema of her LLE which she has been scratching with her fingernails more frequently and in her sleep. Patient states she noted that her left leg became red and hot and came to the ED for further evaluation. On exam, patient denies chest pain, headache or dizziness. Patient denies fever , chills, abdominal pain, nausea, vomit, diarrhea or constipation. Imaging: Vascular Study: negative for DVT of LLE Chest Xray: no acute pathology ID: Sepsis secondary to Left Lower ext cellulitis, improving Left leg egative for DVT as per doppler study WBC 17.9 > 13.9 >10.5 Given Clindamycin in ER and Zosyn, antibiotics switched to Unasyn on 09/30/2017 by ID Wound not draining, unable to send for culture Multiple area of healed scabs on wound Lactic levels within normal limits Remains afebrile Monitor wound, pain and labs GI: Transaminitis, unclear etiology Denies alcohol use LFTs trending down Dehydration, resolved Encourage PO intake, d/c IVF F.E.N. Fluids: Encourage PO intake Electrolytes: monitor Nutrition: regular diet Prophylaxis: DVT: Heparin sq TID GI: deferred Visit type - Emergency Visit Emergency Visit: Yes ED Registration Date: 09/30/17 Care time: The patient presented to the Emergency Department on the above date and was hospitalized for further evaluation of their emergent condition. - New Patient This patient is new to me today: No - Critical Care Critical Care patient: No - Discharge Referral Referred to [facility] No
[2017-10-01 10:39] LABS: BASOPHIL 0.9 % (0-2.0); EOSINOPHIL 2.1 % (0-4.5); MCH 31.3 pg (25.7-33.7); MCHC 32.7 g/dl (32.0-36.0); MEAN CELL VOLUME 95.5 fl (80-96); MEAN PLT VOLUME 8.5 fl (7.5-11.1); NEUTROPHILS 65.2 % (42.8-82.8); PLATELET COUNT 304 K/MM3 (134-434); RDW 13.1 % (11.6-15.6); WHITE BLOOD COUNT 10.5 K/mm3 (4.0-10.0)
[2017-10-01 11:18] LABS: ALBUMIN 2.6 g/dl (3.4-5.0); ANION GAP 8 (8-16); CALCIUM 8.6 mg/dL (8.5-10.1); CO2 28 mmol/L (21-32); CREATININE 0.7 mg/dL (0.55-1.02); GLUCOSE,RANDOM 146 mg/dL (74-106); SGOT/AST 33 U/L (15-37); SGPT/ALT 66 U/L (12-78)
[2017-10-01 11:20] LABS: ALK PHOS 206 U/L (45-117); BILIRUBIN,TOTAL 0.4 mg/dL (0.2-1.0)
[2017-10-01] MEDS: SODIUM CHLORIDE 1,000 ML IV SCH ×2 (11:51→13:25)
[2017-10-01] MEDS: LACTOBACILLUS ACIDOPHILUS 1 EACH TAB (FP) PO SCH (13:55)
--- NOTE | 2017-10-01 16:42 | PN ---
Progress Note, Physician History of Present Illness: Pt feels she is getting better. Has some tenderness with ambulation. Remains afebrile. - Current Medication List Current Medications: Active Medications Acetaminophen (Tylenol -) 650 mg PO Q4H PRN PRN Reason: FEVER OR PAIN Last Admin: 09/29/17 23:27 Dose: 650 mg Albuterol/Ipratropium (Duoneb -) 1 amp NEB Q6H PRN PRN Reason: SHORTNESS OF BREATH Heparin Sodium (Porcine) (Heparin -) 5,000 unit SQ TID SWATHI Last Admin: 10/01/17 13:55 Dose: 5,000 unit Ampicillin Sodium/Sulbactam (Sodium 3 gm/ Sodium Chloride) 100 mls @ 200 mls/ hr IVPB Q6H-IV SWATHI Last Admin: 10/01/17 14:00 Dose: 200 mls/hr Lactobacillus Acidophilus (Bacid -) 1 tab PO DAILY SWATHI Last Admin: 10/01/17 13:55 Dose: 1 tab Ondansetron HCl (Zofran Injection) 4 mg IVPUSH Q4H PRN PRN Reason: NAUSEA AND/OR VOMITING Tramadol HCl (Ultram -) 50 mg PO Q6H PRN PRN Reason: PAIN Last Admin: 10/01/17 06:15 Dose: 50 mg - Objective Vital Signs: Vital Signs Temperature 98.4 F 10/01/17 14:36 Pulse Rate 84 10/01/17 14:36 Respiratory Rate 20 10/01/17 10:00 Blood Pressure 139/72 10/01/17 14:36 O2 Sat by Pulse Oximetry (%) 95 10/01/17 09:00 Constitutional: Yes: No Distress Neck: Yes: Supple Cardiovascular: Yes: Regular Rate and Rhythm Respiratory: Yes: CTA Bilaterally Gastrointestinal: Yes: Normal Bowel Sounds, Soft Genitourinary: Yes: WNL Extremities: Yes: Erythema (LLE erythema/ warmth appears improved, no open draining wounds, mild tenderness with palpation) Neurological: Yes: Alert Labs: CBC, BMP 10/01/17 09:35 10/01/17 09:35 INR, PTT INR 1.12 (0.82-1.09) 09/29/17 11:03 Problem List - Problems (1) Cellulitis Code(s): L03.90 - CELLULITIS, UNSPECIFIED Qualifiers: Site of cellulitis: extremity Site of cellulitis of extremity: lower extremity Laterality: left Qualified Code(s): L03.116 - Cellulitis of left lower limb Assessment/Plan 67 y.o. female presenting with LLE edema/warmth/erythema/tenderness and leukocytosis LLE Cellulitis - mildly improved - continue on Unasyn for now - repeat ESR/CRP -- extremely elevated on admission - leukocytosis resolved continue monitor
[2017-10-02] MEDS ORDERED: PT OWN MED DRAWER 7, Y5N ONE ×3 (02:22→15:22)
[2017-10-02] MEDS: AMPICILLIN NA/SULBACTAM NA 3 GM in SODIUM CHLORIDE 100 ML IVPB SCH ×4 (02:38→20:51)
[2017-10-02] MEDS: traMADol HCL 50 MG TABLET PO PRN ×2 (03:27→21:58)
[2017-10-02] MEDS: HEPARIN NA (PORCINE) 5,000 UNITS/ML 1ML VIAL SQ SCH ×3 (06:44→21:59)
[2017-10-02 08:44] LABS: EOSINOPHIL 3.3 % (0-4.5); MCH 31.9 pg (25.7-33.7); MCHC 33.9 g/dl (32.0-36.0); MEAN PLT VOLUME 8.4 fl (7.5-11.1); PLATELET COUNT 314 K/MM3 (134-434); WHITE BLOOD COUNT 10.7 K/mm3 (4.0-10.0)
[2017-10-02 09:33] LABS: ALBUMIN 2.7 g/dl (3.4-5.0); ANION GAP 8 (8-16); BILIRUBIN,TOTAL 0.3 mg/dL (0.2-1.0); CALCIUM 8.5 mg/dL (8.5-10.1); CO2 28 mmol/L (21-32); CREATININE 0.6 mg/dL (0.55-1.02); GLUCOSE,RANDOM 113 mg/dL (74-106); SGOT/AST 33 U/L (15-37); SGPT/ALT 65 U/L (12-78); TOT PROT 7.2 g/dl (6.4-8.2)
[2017-10-02 09:34] LABS: ALK PHOS 229 U/L (45-117)
[2017-10-02] MEDS: LACTOBACILLUS ACIDOPHILUS 1 EACH TAB (FP) PO SCH (09:57)
[2017-10-02 10:09] LABS: C-REACTIVE PROTEIN 10.8 MG/DL (0.00-0.3)
--- NOTE | 2017-10-02 12:47 | PN ---
Progress Note, Physician History of Present Illness: Pt states she feels well. LE feels less tight to her. Ambulating withou difficulty. Has been having Loose BMs but no abd pain/cramping. - Current Medication List Current Medications: Active Medications Acetaminophen (Tylenol -) 650 mg PO Q4H PRN PRN Reason: FEVER OR PAIN Last Admin: 09/29/17 23:27 Dose: 650 mg Albuterol/Ipratropium (Duoneb -) 1 amp NEB Q6H PRN PRN Reason: SHORTNESS OF BREATH Heparin Sodium (Porcine) (Heparin -) 5,000 unit SQ TID [facility] Last Admin: 10/02/17 06:44 Dose: 5,000 unit Ampicillin Sodium/Sulbactam (Sodium 3 gm/ Sodium Chloride) 100 mls @ 200 mls/ hr IVPB Q6H-IV SWATHI Last Admin: 10/02/17 09:57 Dose: 200 mls/hr Lactobacillus Acidophilus (Bacid -) 1 tab PO DAILY SWATHI Last Admin: 10/02/17 09:57 Dose: 1 tab Ondansetron HCl (Zofran Injection) 4 mg IVPUSH Q4H PRN PRN Reason: NAUSEA AND/OR VOMITING Tramadol HCl (Ultram -) 50 mg PO Q6H PRN PRN Reason: PAIN Last Admin: 10/02/17 03:27 Dose: 50 mg - Objective Vital Signs: Vital Signs Temperature 98.3 F 10/02/17 06:00 Pulse Rate 91 H 10/02/17 06:00 Respiratory Rate 18 10/02/17 06:00 Blood Pressure 158/80 10/02/17 06:00 O2 Sat by Pulse Oximetry (%) 95 10/01/17 22:00 Constitutional: Yes: No Distress, Calm Neck: Yes: Supple Cardiovascular: Yes: Regular Rate and Rhythm Respiratory: Yes: CTA Bilaterally Gastrointestinal: Yes: Normal Bowel Sounds, Soft Genitourinary: Yes: WNL Integumentary: Yes: Erythema (Lt LE erythema/edema improving. Less tenderness. Mild warmth persists. LLE lower aspect with mild induration.) Labs: CBC, BMP 10/02/17 08:00 10/02/17 06:00 INR, PTT INR 1.12 (0.82-1.09) 09/29/17 11:03 ESR - 106, CRP 10.8 Problem List - Problems (1) Cellulitis Code(s): L03.90 - CELLULITIS, UNSPECIFIED Qualifiers: Site of cellulitis: extremity Site of cellulitis of extremity: lower extremity Laterality: left Qualified Code(s): L03.116 - Cellulitis of left lower limb Assessment/Plan 67 y.o. female presenting with LLE edema/warmth/erythema/tenderness and leukocytosis LLE Cellulitis - improving slowly - continue on Unasyn for now - suggest MRI LLE - vitals stable continue monitor
--- NOTE | 2017-10-02 18:19 | PN ---
Progress Note (short form) - Note Progress Note: Subjective: The patient was seen and examined at the bedside, no complaints at this time. Current Medications Generic Name Dose Route Start Last Admin Trade Name Freq PRN Reason Stop Dose Admin Acetaminophen 650 mg 09/29/17 16:48 09/29/17 23:27 Tylenol - PO 650 mg Q4H PRN Administration FEVER OR PAIN Albuterol/Ipratropium 1 amp 09/30/17 13:13 Duoneb - NEB Q6H PRN SHORTNESS OF BREATH Heparin Sodium (Porcine) 5,000 unit 09/29/17 22:00 10/02/17 15:28 Heparin - SQ 5,000 unit TID SWATHI Administration Ampicillin Sodium/Sulbactam 100 mls @ 200 mls/hr 09/30/17 15:00 10/02/17 15: 28 Sodium 3 gm/ Sodium Chloride IVPB 200 mls/hr Q6H-IV SWATHI Administration Lactobacillus Acidophilus 1 tab 10/01/17 13:45 10/02/17 09:57 Bacid - PO 1 tab DAILY SWATHI Administration Ondansetron HCl 4 mg 09/29/17 16:56 Zofran Injection IVPUSH Q4H PRN NAUSEA AND/OR VOMITING Tramadol HCl 50 mg 09/29/17 16:55 10/02/17 03:27 Ultram - PO 50 mg Q6H PRN Administration PAIN Objective: Vital Signs Period Temp Pulse Resp BP Sys/Hazel Pulse Ox Last 24 Hr 97.9 F-98.5 F 82-92 18-20 131-158/71-95 95-95 Physical Exam: General: NAD Lungs: CBCD WBC 10.7 K/mm3 (4.0-10.0) H 10/02/17 08:00 RBC 3.53 M/mm3 (3.60-5.2) L 10/02/17 08:00 Hgb 11.2 GM/dL (10.7-15.3) 10/02/17 08:00 Hct 33.2 % (32.4-45.2) 10/02/17 08:00 MCV 94.0 fl (80-96) 10/02/17 08:00 MCHC 33.9 g/dl (32.0-36.0) 10/02/17 08:00 RDW 13.0 % (11.6-15.6) 10/02/17 08:00 Plt Count 314 K/MM3 (134-434) 10/02/17 08:00 MPV 8.4 fl (7.5-11.1) 10/02/17 08:00 CMP Sodium 136 mmol/L (136-145) 10/02/17 06:00 Potassium 3.8 mmol/L (3.5-5.1) 10/02/17 06:00 Chloride 100 mmol/L (98-107) 10/02/17 06:00 Carbon Dioxide 28 mmol/L (21-32) 10/02/17 06:00 Anion Gap 8 (8-16) 10/02/17 06:00 BUN 4 mg/dL (7-18) L D 10/02/17 06:00 Creatinine 0.6 mg/dL (0.55-1.02) 10/02/17 06:00 Creat Clearance w eGFR > 60 (>60) 10/02/17 06:00 Random Glucose 113 mg/dL (74-106) H D 10/02/17 06:00 Calcium 8.5 mg/dL (8.5-10.1) 10/02/17 06:00 Total Bilirubin 0.3 mg/dL (0.2-1.0) D 10/02/17 06:00 AST 33 U/L (15-37) 10/02/17 06:00 ALT 65 U/L (12-78) 10/02/17 06:00 Alkaline Phosphatase 229 U/L (45-117) H 10/02/17 06:00 Total Protein 7.2 g/dl (6.4-8.2) 10/02/17 06:00 Albumin 2.7 g/dl (3.4-5.0) L 10/02/17 06:00 Microbiology 09/30/17 17:15 Blood - Peripheral Venous Blood Culture - Preliminary NO GROWTH OBTAINED AFTER 48 HOURS, INCUBATION TO CONTINUE FOR 3 DAYS. 09/30/17 17:15 Blood - Peripheral Venous Blood Culture - Preliminary NO GROWTH OBTAINED AFTER 48 HOURS, INCUBATION TO CONTINUE FOR 3 DAYS. 09/29/17 11:03 Blood - Peripheral Venous Blood Culture - Preliminary NO GROWTH OBTAINED AFTER 72 HOURS, INCUBATION TO CONTINUE FOR 2 DAYS. 09/29/17 11:03 Blood - Peripheral Venous Blood Culture - Preliminary Staphylococcus Coagulase Neg 09/29/17 23:10 Urine - Urine Clean Catch Urine Culture - Final NO GROWTH OBTAINED Assessment: This is a 67 year old female with PMHx of eczema, former smoker, who presented to the ED with left lower extremity cellulitis. Plan: 1) Sepsis 2/2 LLE cellulitis - Slowly improving - WBC have trended down from admission - Continue Unasyn (09/30- ) - LLE doppler negative for DVT - Appreciate ID consult 2) Isolated elevated alk phos - No abdominal tenderness - Continue to trend 3) F/E/N: Visit type - Emergency Visit Emergency Visit: Yes ED Registration Date: 09/30/17 Care time: The patient presented to the Emergency Department on the above date and was hospitalized for further evaluation of their emergent condition. - New Patient This patient is new to me today: Yes Date on this admission: 10/02/17 - Critical Care Critical Care patient: No
[2017-10-03] MEDS: AMPICILLIN NA/SULBACTAM NA 3 GM in SODIUM CHLORIDE 100 ML IVPB SCH ×4 (02:46→20:58)
[2017-10-03] MEDS: HEPARIN NA (PORCINE) 5,000 UNITS/ML 1ML VIAL SQ SCH ×3 (06:17→22:36)
[2017-10-03 08:35] LABS: MCH 31.5 pg (25.7-33.7); MCHC 33.5 g/dl (32.0-36.0); MEAN CELL VOLUME 94.2 fl (80-96); MEAN PLT VOLUME 8.3 fl (7.5-11.1); PLATELET COUNT 363 K/MM3 (134-434); RDW 12.9 % (11.6-15.6); WHITE BLOOD COUNT 10.3 K/mm3 (4.0-10.0)
[2017-10-03 09:06] LABS: ALBUMIN 2.9 g/dl (3.4-5.0); ANION GAP 9 (8-16); BILIRUBIN,TOTAL 0.5 mg/dL (0.2-1.0); CALCIUM 9.2 mg/dL (8.5-10.1); CO2 31 mmol/L (21-32); CREATININE 0.6 mg/dL (0.55-1.02); GLUCOSE,RANDOM 94 mg/dL (74-106); SGOT/AST 30 U/L (15-37); SGPT/ALT 58 U/L (12-78); TOT PROT 7.7 g/dl (6.4-8.2)
[2017-10-03 09:07] LABS: ALK PHOS 221 U/L (45-117)
--- NOTE | 2017-10-03 09:09 | PN ---
Progress Note (short form) - Note Progress Note: Subjective: The patient was seen and examined at the bedside, she states she would like to shower Current Medications Generic Name Dose Route Start Last Admin Trade Name Edie PRN Reason Stop Dose Admin Acetaminophen 650 mg 09/29/17 16:48 09/29/17 23:27 Tylenol - PO 650 mg Q4H PRN Administration FEVER OR PAIN Albuterol/Ipratropium 1 amp 09/30/17 13:13 Duoneb - NEB Q6H PRN SHORTNESS OF BREATH Heparin Sodium (Porcine) 5,000 unit 09/29/17 22:00 10/03/17 06:17 Heparin - SQ 5,000 unit TID SWATHI Administration Ampicillin Sodium/Sulbactam 100 mls @ 200 mls/hr 09/30/17 15:00 10/03/17 02: 46 Sodium 3 gm/ Sodium Chloride IVPB 200 mls/hr Q6H-IV SWATHI Administration Lactobacillus Acidophilus 1 tab 10/01/17 13:45 10/02/17 09:57 Bacid - PO 1 tab DAILY SWATHI Administration Ondansetron HCl 4 mg 09/29/17 16:56 Zofran Injection IVPUSH Q4H PRN NAUSEA AND/OR VOMITING Tramadol HCl 50 mg 09/29/17 16:55 10/02/17 21:58 Ultram - PO 50 mg Q6H PRN Administration PAIN Objective: Vital Signs Period Temp Pulse Resp BP Sys/Hazel Pulse Ox Last 24 Hr 97.8 F-99.1 F 74-86 18-18 131-147/69-85 Physical Exam: General: NAD Abd: Soft, non-tender Ext: LLE with erythema from knee to ankle. tibial edema and tenderness. 2+ DP/ PT bilaterally CBCD WBC 10.3 K/mm3 (4.0-10.0) H 10/03/17 07:40 RBC 3.74 M/mm3 (3.60-5.2) 10/03/17 07:40 Hgb 11.8 GM/dL (10.7-15.3) 10/03/17 07:40 Hct 35.3 % (32.4-45.2) 10/03/17 07:40 MCV 94.2 fl (80-96) 10/03/17 07:40 MCHC 33.5 g/dl (32.0-36.0) 10/03/17 07:40 RDW 12.9 % (11.6-15.6) 10/03/17 07:40 Plt Count 363 K/MM3 (134-434) 10/03/17 07:40 MPV 8.3 fl (7.5-11.1) 10/03/17 07:40 CMP Sodium 136 mmol/L (136-145) 10/02/17 06:00 Potassium 3.8 mmol/L (3.5-5.1) 10/02/17 06:00 Chloride 100 mmol/L (98-107) 10/02/17 06:00 Carbon Dioxide 28 mmol/L (21-32) 10/02/17 06:00 Anion Gap 8 (8-16) 10/02/17 06:00 BUN 4 mg/dL (7-18) L D 10/02/17 06:00 Creatinine 0.6 mg/dL (0.55-1.02) 10/02/17 06:00 Creat Clearance w eGFR > 60 (>60) 10/02/17 06:00 Random Glucose 113 mg/dL (74-106) H D 10/02/17 06:00 Calcium 8.5 mg/dL (8.5-10.1) 10/02/17 06:00 Total Bilirubin 0.3 mg/dL (0.2-1.0) D 10/02/17 06:00 AST 33 U/L (15-37) 10/02/17 06:00 ALT 65 U/L (12-78) 10/02/17 06:00 Alkaline Phosphatase 229 U/L (45-117) H 10/02/17 06:00 Total Protein 7.2 g/dl (6.4-8.2) 10/02/17 06:00 Albumin 2.7 g/dl (3.4-5.0) L 10/02/17 06:00 Microbiology 09/30/17 17:15 Blood - Peripheral Venous Blood Culture - Preliminary NO GROWTH OBTAINED AFTER 48 HOURS, INCUBATION TO CONTINUE FOR 3 DAYS. 09/30/17 17:15 Blood - Peripheral Venous Blood Culture - Preliminary NO GROWTH OBTAINED AFTER 48 HOURS, INCUBATION TO CONTINUE FOR 3 DAYS. 09/29/17 11:03 Blood - Peripheral Venous Blood Culture - Preliminary NO GROWTH OBTAINED AFTER 72 HOURS, INCUBATION TO CONTINUE FOR 2 DAYS. 09/29/17 11:03 Blood - Peripheral Venous Blood Culture - Preliminary Staphylococcus Coagulase Neg 09/29/17 23:10 Urine - Urine Clean Catch Urine Culture - Final NO GROWTH OBTAINED Assessment: This is a 67 year old female with PMHx of eczema, former smoker, who presented to the ED with left lower extremity cellulitis. Plan: 1) Sepsis 2/2 LLE cellulitis - Elevated ESR, CRP, alk phos - Will order MRI to r/o osteomyelitis - WBC have trended down from admission - Continue Unasyn (09/30- ) - LLE doppler negative for DVT - Appreciate ID consult 2) Isolated elevated alk phos - No abdominal tenderness - Continue to trend 3) F/E/N: - Regular diet - Monitor electrolytes 4) Prophylaxis: - OOB ambulating - Visit type - Emergency Visit Emergency Visit: Yes ED Registration Date: 09/30/17 Care time: The patient presented to the Emergency Department on the above date and was hospitalized for further evaluation of their emergent condition. - New Patient This patient is new to me today: No - Critical Care Critical Care patient: No
[2017-10-03] MEDS ORDERED: PT OWN MED DRAWER 7, Y5N ONE (09:13)
[2017-10-03] MEDS: LACTOBACILLUS ACIDOPHILUS 1 EACH TAB (FP) PO SCH (09:34)
[2017-10-03] MEDS: traMADol HCL 50 MG TABLET PO PRN ×2 (11:32→18:14)
[2017-10-03] MEDS: FLUOCINONIDE 0.05% CREAM (15 GM TUBE) TP SCH ×2 (11:45→22:36)
--- NOTE | 2017-10-03 11:57 | PN ---
Progress Note, Physician History of Present Illness: Pt is alert. Wishes to go home. States she feels better. No new complaints. - Current Medication List Current Medications: Active Medications Acetaminophen (Tylenol -) 650 mg PO Q4H PRN PRN Reason: FEVER OR PAIN Last Admin: 09/29/17 23:27 Dose: 650 mg Albuterol/Ipratropium (Duoneb -) 1 amp NEB Q6H PRN PRN Reason: SHORTNESS OF BREATH Fluocinonide (Lidex 0.05% Cream -) 1 applic TP BID [facility] Last Admin: 10/03/17 11:45 Dose: 1 applic Heparin Sodium (Porcine) (Heparin -) 5,000 unit SQ TID [facility] Last Admin: 10/03/17 06:17 Dose: 5,000 unit Ampicillin Sodium/Sulbactam (Sodium 3 gm/ Sodium Chloride) 100 mls @ 200 mls/ hr IVPB Q6H-IV SWATHI Last Admin: 10/03/17 09:34 Dose: 200 mls/hr Lactobacillus Acidophilus (Bacid -) 1 tab PO DAILY [facility] Last Admin: 10/03/17 09:34 Dose: 1 tab Ondansetron HCl (Zofran Injection) 4 mg IVPUSH Q4H PRN PRN Reason: NAUSEA AND/OR VOMITING Tramadol HCl (Ultram -) 50 mg PO Q6H PRN PRN Reason: PAIN Last Admin: 10/03/17 11:32 Dose: 50 mg - Objective Vital Signs: Vital Signs Temperature 98.1 F 10/03/17 09:00 Pulse Rate 88 10/03/17 09:00 Respiratory Rate 18 10/03/17 09:00 Blood Pressure 151/82 10/03/17 10:00 O2 Sat by Pulse Oximetry (%) 94 L 10/03/17 09:00 Constitutional: Yes: No Distress Cardiovascular: Yes: Regular Rate and Rhythm Respiratory: Yes: Regular Gastrointestinal: Yes: Normal Bowel Sounds, Soft Genitourinary: Yes: WNL Extremities: Yes: Erythema (LE erythema improving, no warmth/tenderness, mild induration at lower aspect) Neurological: Yes: Alert, Oriented Labs: CBC, BMP 10/03/17 07:40 10/03/17 07:40 INR, PTT INR 1.12 (0.82-1.09) 09/29/17 11:03 - ....Imaging MRI: Pending Problem List - Problems (1) Cellulitis Code(s): L03.90 - CELLULITIS, UNSPECIFIED Qualifiers: Site of cellulitis: extremity Site of cellulitis of extremity: lower extremity Laterality: left Qualified Code(s): L03.116 - Cellulitis of left lower limb Assessment/Plan 67 y.o. female presenting with LLE edema/warmth/erythema/tenderness and leukocytosis LLE Cellulitis - improving slowly - continue on Unasyn for now - MRI LLE today - plan switch to po antibiotics if no specific findings on MRI - vitals stable continue monitor
--- NOTE | 2017-10-03 16:39 | PN ---
Progress Note (short form) - Note Progress Note: MRI results reviewed - no fluid collection or findings c/w Osteomyelitis - pt may be discharged on Augmentin 875 mg po BID x 7 days, Bactrim DS 1 tab po BID x 7 days - pt to seek medical attention if symptoms worsen or develops possible reaction to antibiotics including rash or diarrhea/abd discomfort - instruct pt to f/u with PMD in a week Problem List - Problems (1) Cellulitis Code(s): L03.90 - CELLULITIS, UNSPECIFIED Qualifiers: Site of cellulitis: extremity Site of cellulitis of extremity: lower extremity Laterality: left Qualified Code(s): L03.116 - Cellulitis of left lower limb
[2017-10-04] MEDS: AMPICILLIN NA/SULBACTAM NA 3 GM in SODIUM CHLORIDE 100 ML IVPB SCH ×2 (02:26→10:21)
[2017-10-04] MEDS: HEPARIN NA (PORCINE) 5,000 UNITS/ML 1ML VIAL SQ SCH (05:47)
[2017-10-04 07:42] LABS: MCHC 32.6 g/dl (32.0-36.0); MEAN CELL VOLUME 95.1 fl (80-96); MEAN PLT VOLUME 8.4 fl (7.5-11.1); PLATELET COUNT 370 K/MM3 (134-434); WHITE BLOOD COUNT 11.4 K/mm3 (4.0-10.0)
[2017-10-04 08:12] LABS: ALBUMIN 2.9 g/dl (3.4-5.0); ANION GAP 8 (8-16); CALCIUM 8.9 mg/dL (8.5-10.1); CO2 31 mmol/L (21-32); CREATININE 0.6 mg/dL (0.55-1.02); GLUCOSE,RANDOM 97 mg/dL (74-106); SGOT/AST 28 U/L (15-37); SGPT/ALT 54 U/L (12-78)
[2017-10-04 08:14] LABS: ALK PHOS 200 U/L (45-117); BILIRUBIN,TOTAL 0.5 mg/dL (0.2-1.0); TOT PROT 7.9 g/dl (6.4-8.2)
[2017-10-04 09:19] VITALS: BP 159/82; PULSE 81; TEMP 97.8
[2017-10-04] MEDS: LACTOBACILLUS ACIDOPHILUS 1 EACH TAB (FP) PO SCH (10:30)
[2017-10-04] MEDS ORDERED: SULFAMETHOXAZOLE/TRIMETHOPRIM 800MG/160MG D.S. TABLET PO SCH (10:30)
[2017-10-04] MEDS ORDERED: AMOX TR/POT CLAV 875MG/125MG TABLETS (FP) PO SCH (10:30)
[2017-10-04] MEDS: FLUOCINONIDE 0.05% CREAM (15 GM TUBE) TP SCH (10:30)
[2017-10-04] MEDS ORDERED: PT OWN MED DRAWER 7, Y5N ONE (10:33)
--- NOTE | 2017-10-04 10:33 | DS ---
Physical Examination Vital Signs: Vital Signs Temperature 97.8 F 10/04/17 09:19 Pulse Rate 81 10/04/17 09:19 Respiratory Rate 18 10/04/17 09:19 Blood Pressure 159/82 10/04/17 09:19 O2 Sat by Pulse Oximetry (%) 93 L 10/03/17 12:19 Findings/Remarks: Physical Exam: General: NAD Abd: Soft, non-tender Ext: Improving LLE erythema. tibial edema. Non-tender. 2+ DP/PT bilaterally Labs: CBC, BMP 10/04/17 07:15 10/04/17 07:15 Discharge Summary Reason For Visit: CELLULITIS Current Active Problems Cellulitis (Acute) Sepsis (Resolved) Hospital Course: This is a 67 year old female with PMHx of eczema, former smoker, who presented to the ED with left lower extremity cellulitis. Plan: 1) Sepsis 2/2 LLE cellulitis - Elevated ESR, CRP, alk phos - MRI with no evidence of osteomyelitis - WBC have trended down from admission - Unasyn (09/30-10/03) - LLE doppler negative for DVT - Appreciate ID consult 2) Isolated elevated alk phos - No abdominal tenderness - Will need outpatient follow-up with primary care provider 3) F/E/N: - Regular diet The patient is being discharged with Augmentin and Bactrim. Instructed the patient to follow-up with pcp for repeat labs in [address] Segovia to assure resolution of cellulitis. This discharge took 35 minutes to complete. Condition: Improved - Instructions Diet, Activity, Other Instructions: Please return to the ED with new, persistent, or worsening symptoms. Please follow-up with providers as indicated. Antibiotics: Continue Augmentin 1 tablet by mouth twice a day Continue Bactrim 1 table by mouth twice a day Referrals: Modesto Segovia MD [Staff Physician] - (Please follow-up with Dr. Segovia after you complete your antibiotics in about 7 days for a reevaluation of your cellulitis and to assure it has resolved) Lilia Mckeon MD [Staff Physician] - 1 Week Mike Andres MD [Primary Care Provider] - (Please follow-up with Dr. Andres within 7-10 days to have a repeat ESR, CRP, and alk phos blood level drawn) Disposition: HOME - Home Medications Comprehensive Discharge Medication List: Ambulatory Orders Crisaborole [Eucrisa] 60 gm TP BID PRN #1 oint...g. 10/03/17 Fluocinonide 0.05% Cream [Lidex 0.05% Cream -] 1 applic TP BID PRN #1 tube 10/03 Amoxicillin/Potassium Clav [Augmentin 875-125 Tablet] 1 each PO BID #13 tablet 10/04/17 Sulfamethoxazole/Trimethoprim [Bactrim Ds -] 1 tab PO BID #13 tablet 10/04/17 This patient is new to me today: No Emergency Visit: Yes ED Registration Date: 09/30/17 Care time: The patient presented to the Emergency Department on the above date and was hospitalized for further evaluation of their emergent condition. Critical Care patient: No - Discharge Referral Referred to [facility] No
== END 2017-10-04 10:42 | disposition home or self-care (01) | DRG 872 ==
LOC: JER 10:11 → JERBED 14:54 → J5S 16:21 → OBSVTOIN 09-30 13:30
PROVIDERS: ADMIT Internal Medicine; ATTEND Registered Nurse
DX: A41.89 Other specified sepsis (principal); L03.116 Cellulitis of left lower limb; Z68.41 Body mass index [BMI] 40.0-44.9, adult; R74.0 Nonspecific elevation of levels of transaminase and lactic acid dehydrogenase [LDH]; E86.0 Dehydration; L30.8 Other specified dermatitis; E66.8 Other obesity
CPT/HCPCS: 36415; 71010-TC; 73718-LT; 80053; 81003; 81015; 83605; 85025; 85027; 85610; 85651; 86140; 87040; 87086; 87186; 93971-TC; 94640; 97116-GP; 97161-GP; 99283-25; G0378; J1644

== ENCOUNTER 2019-07-10 07:55 | Emergency (ER) | payer OTHER ==
[2019-07-10 08:17] VITALS: BP 153/69; PULSE 53; TEMP 98.2; BMI 28.3
--- NOTE | 2019-07-10 08:24 | PDOC ---
History of Present Illness - General Chief Complaint: Bite Stated Complaint: IINSECT BITE Time Seen by Provider: 07/10/19 08:23 History Source: Patient Exam Limitations: No Limitations Past History - Travel Traveled outside of the country in the last 30 days: No - Past Medical History Allergies/Adverse Reactions: Allergies Allergy/AdvReac Type Severity Reaction Status Date / Time No Known Drug Allergies Allergy Verified 07/10/19 08:15 Home Medications: Ambulatory Orders Crisaborole [Eucrisa] 60 gm TP BID PRN #1 oint...g. 10/03/17 Fluocinonide 0.05% Cream [Lidex 0.05% Cream -] 1 applic TP BID PRN #1 tube 10/03 Amoxicillin/Potassium Clav [Augmentin 875-125 Tablet] 1 each PO BID #13 tablet 10/04/17 Sulfamethoxazole/Trimethoprim [Bactrim Ds -] 1 tab PO BID #13 tablet 10/04/17 COPD: No Thyroid Disease: No - Immunization History Immunization Up to Date: Yes - Suicide/Smoking/Psychosocial Hx Smoking History: Never smoked Have you smoked in the past 12 months: No Hx Alcohol Use: No Drug/Substance Use Hx: No Substance Use Type: Alcohol Hx Substance Use Treatment: No Review of Systems - Review of Systems Able to Perform ROS?: Yes Comments:: 07/10/19 08:34 CONSTITUTIONAL: Absent: fever, chills, diaphoresis, generalized weakness, malaise, loss of appetite HEENT: Absent: rhinorrhea, nasal congestion, throat pain, throat swelling, difficulty swallowing, mouth swelling, ear pain, eye pain, visual Changes CARDIOVASCULAR: Absent: chest pain, loss of consciousness, palpitations, irregular heart rate, peripheral edema RESPIRATORY: Absent: cough, shortness of breath, dyspnea with exertion, orthopnea, wheezing, stridor, hemoptysis GASTROINTESTINAL: Absent: abdominal pain, abdominal distension, nausea, vomiting, diarrhea, constipation, melena, hematochezia GENITOURINARY: Absent: dysuria, frequency, urgency, hesitancy, hematuria, flank pain, genital pain MUSCULOSKELETAL: Present: neck pain Absent: myalgia, arthralgia, joint swelling SKIN: Present: rash Absent: itching, pallor HEMATOLOGIC/IMMUNOLOGIC: Absent: easy bleeding, easy bruising, lymphadenopathy, frequent infections ENDOCRINE: Absent: unexplained weight gain, unexplained weight loss, heat intolerance, cold intolerance NEUROLOGIC: Absent: headache, focal weakness or paresthesias, dizziness, unsteady gait, seizure, mental status changes, bladder or bowel incontinence PSYCHIATRIC: Absent: anxiety, depression, suicidal or homicidal ideation, hallucinations. Is the patient limited Albanian proficient: No *Physical Exam - Vital Signs Last Vital Signs Temp Pulse Resp BP Pulse Ox 98.2 F 53 L 17 153/69 98 07/10/19 08:15 07/10/19 08:15 07/10/19 08:15 07/10/19 08:15 07/10/19 08:15 - Physical Exam Comments: 07/10/19 08:36 GENERAL: The patient is awake, alert, and fully oriented, in no acute distress. HEAD: Normal with no signs of trauma. EYES: Pupils equal, round and reactive to light, extraocular movements intact, sclera anicteric, conjunctiva clear. EXTREMITIES: TTP of the R neck over the area of erythmea. Normal range of motion , no edema. NEUROLOGICAL: Normal speech, normal gait. PSYCH: Normal mood, normal affect. SKIN: 1cm round area of erythema to the R lower neck. No obvious stinger in place at this time. Does not appear infected. Warm, Dry, normal turgor, no rashes or lesions noted. Medical Decision Making - Medical Decision Making 07/10/19 08:37 The patient is a 68 y/o F who presents for a bee sting. She [place] the bus [place] when she felt something sting the back of her neck. She swatted the insect and saw it was a bee. She has no known bee allergies. Admits to irritation and a burning sensation around the area as well as associated neck pain. Denies difficulty breathing, shortness of breath, difficulty swallowing, numbness, tingling and weakness to the upper extremities A/P: Bee sting On exam 1cm round area of erythema to the lower R neck where sting occured. Also with neck pain over that area Neck spasm likely d/t bee sting Motrin given Recommend supportive care and dc home Airway stable, vital signs stable I discussed the physical exam findings, ancillary test results and final diagnoses with the patient. I answered all of the patient's questions. The patient was satisfied with the care received and felt comfortable with the discharge plan and treatment plan. The Patient agrees to follow up with the primary care physician/specialist within 24-72 hours. Return precautions were given. *DC/Admit/Observation/Transfer Diagnosis at time of Disposition: Bee sting Qualifiers: Encounter type: initial encounter Injury intent: accidental or unintentional Qualified Code(s): T63.441A - Toxic effect of venom of bees, accidental ( unintentional), initial encounter - Discharge Dispostion Disposition: HOME Condition at time of disposition: Stable Decision to Admit order: No - Referrals Referrals: Bean Bauman MD [Staff Physician] - - Patient Instructions Printed Discharge Instructions: DI for Insect Bites and Stings Additional Instructions: You were evaluated for your bee sting today; your neck pain is most likely a result of the sting Take Benadryl every 8 hours as needed for itching or burning sensation You may take Motrin 600mg every 6 hours for pain Apply ice to the area Follow up with you primary care doctor this week Return to the ER for any new or worsening symptoms - Post Discharge Activity Forms/Work/School Notes: Back to Work
[2019-07-10] MEDS ORDERED: IBUPROFEN 600 MG TABLET (FP) PO ONE ×2 (08:30→08:34)
== END 2019-07-10 10:10 | disposition home or self-care (01) ==
LOC: JERFT 07:55
DX: T63.441A Toxic effect of venom of bees, accidental (unintentional), initial encounter (principal); M54.2 Cervicalgia; Y92.480 Sidewalk as the place of occurrence of the external cause
CPT/HCPCS: 99281-25

== ENCOUNTER 2019-12-07 07:53 | Emergency (ER) | payer OTHER ==
[2019-12-07 08:12] VITALS: BP 146/56; PULSE 59; TEMP 98.2; BMI 29.9
[2019-12-07] MEDS ORDERED: TETRACAINE 0.5% HCL 0.6ML DROPPER.BOTTLE OD ONE (08:16)
[2019-12-07] MEDS ORDERED: FLUORESCEIN NA 1 EA STRIP OD ONE (08:17)
[2019-12-07] MEDS ORDERED: FLUORESCEIN NA 1 EA STRIP ONE (08:18)
[2019-12-07] MEDS ORDERED: TETRACAINE 0.5% OPHTH SOLN 2 ML BOTTLE ONE ×2 (08:19)
--- NOTE | 2019-12-07 08:42 | PDOC ---
History of Present Illness - General Chief Complaint: Eye Problem Stated Complaint: PINK EYE Time Seen by Provider: 12/07/19 08:11 History Source: Patient Exam Limitations: No Limitations - History of Present Illness Initial Comments: 12/07/19 08:37 69-year-old female with no past medical history presents complaining of redness and pain to right eye since yesterday. Went to an urgent care yesterday was given tobramycin. States pain and redness is worsening. Denies headache, rash , changes in vision, recent sick contacts, foreign body sensation, fever, chills. Wears corrective lenses. ROS: GENERAL/CONSTITUTIONAL: No fever, chills, weakness, dizziness HEAD, EYES, EARS, NOSE AND THROAT: Right eye pain and discharge, no changes in vision, No ear pain or discharge, No sore throat CARDIOVASCULAR: No chest pain RESPIRATORY: No shortness of breath or cough GASTROINTESTINAL: No pain, nausea, vomiting, diarrhea or constipation GENITOURINARY: No dysuria MUSCULOSKELETAL: No neck or back pain SKIN: No rash NEUROLOGIC: No headache, vertigo, loss of consciousness, or loss of sensation PE: GENERAL: well-appearing, NAD HEAD: NCAT EYES: VA R eye 20/40, L eye 20/30 with corrective lenses, pupils equal, round and reactive to light, erythema to right conjunctiva with clear watery discharge noted ENT: pharynx: no erythema, no exudate, uvula midline NECK: supple CHEST: nontender RESP: clear, no w/r/r CARDIO: rrr, no m/g/r ABD: +BS, soft, nontender, non distended BACK: no midline spinal ttp, no CVAT EXTREMITIES: Normal range of motion, no edema NEUROLOGICAL: Normal speech, normal gait SKIN: Minimal surrounding erythema and warmth to right orbit, no rash to scalp or right side of face noted, warm, Dry 12/07/19 08:40 Past History - Past Medical History Allergies/Adverse Reactions: Allergies Allergy/AdvReac Type Severity Reaction Status Date / Time No Known Drug Allergies Allergy Verified 07/10/19 08:15 Home Medications: Ambulatory Orders Cephalexin Monohydrate [Keflex -] 500 mg PO Q8H 7 Days #21 capsule 12/07/19 Tobramycin 0.3% Ophth Soln [Tobrex Ophthalmic Solution -] 1 drop OD ASDIR COPD: No Thyroid Disease: No - Immunization History Immunization Up to Date: Yes - Psycho Social/Smoking Cessation Hx Smoking History: Unknown if ever smoked Have you smoked in the past 12 months: No Hx Alcohol Use: No Drug/Substance Use Hx: No Substance Use Type: Alcohol Hx Substance Use Treatment: No *Physical Exam - Vital Signs Last Vital Signs Temp Pulse Resp BP Pulse Ox 98.2 F 59 L 16 146/56 L 96 12/07/19 07:59 12/07/19 07:59 12/07/19 07:59 12/07/19 07:59 12/07/19 07:59 ED Treatment Course - Medications Given in the ED: ED Medications Discontinued Medications Generic Name Dose Route Start Last Admin Trade Name Freq PRN Reason Stop Dose Admin Fluorescein Sodium 1 ea 12/07/19 08:17 12/07/19 08:21 Fluorets - OD 12/07/19 08:18 1 ea ONCE ONE Administration Tetracaine HCl 1 drop 12/07/19 08:16 12/07/19 08:21 Tetravisc 0.5% Eye Drops - OD 12/07/19 08:17 1 drop ONCE ONE Administration Medical Decision Making - Medical Decision Making 12/07/19 08:40 69-year-old female denies past medical history wears corrective lenses complaining of erythema and tearing from right eye since yesterday. Seen at an urgent care yesterday and treated with tobramycin. Presents complaining of worsening redness and pain today. Denies foreign body sensation. No fluorescein uptake Will treat for early orbital cellulitis with cephalexin Return precautions discussed Advised patient to follow-up with solar system installer within 1 to 2 days, continue tobramycin ophthalmic drops Discharge - Discharge Information Problems reviewed: Yes Clinical Impression/Diagnosis: Orbital cellulitis on right Condition: Stable Disposition: HOME - Admission No - Additional Discharge Information Prescriptions: Cephalexin Monohydrate [Keflex -] 500 mg PO Q8H 7 Days #21 capsule - Follow up/Referral Referrals: Tex Fernandez MD [Primary Care Provider] - - Patient Discharge Instructions Additional Instructions: Take cephalexin 500 mg every 8 hours for 7 days Continue tobramycin drops as directed Follow-up with your solar system installer within 1 to 2 days Note for work provided Return to ED if headache, rash, worsening pain, changes in vision or any concern - Post Discharge Activity Work/Back to School Note: Back to Work
== END 2019-12-07 08:47 | disposition home or self-care (01) ==
LOC: JER 07:53 → JERFT 07:53
PROC: 4A07X0Z Measurement of Visual Acuity, External Approach (ICD-10-PCS; principal; 2019-12-07)
DX: H05.011 Cellulitis of right orbit (principal)
CPT/HCPCS: 99173; 99283-25